=== PATIENT | male | born 1965 | race Caucasian/White ===

== ENCOUNTER 2018-07-04 15:37 | Inpatient (IN) ==
[2018-07-04] MEDS ORDERED: Acetaminophen 325 MG Tablet PO PRN (19:55)
[2018-07-04] MEDS ORDERED: Bisacodyl 10 MG Supp RECTAL PRN (19:55)
[2018-07-04] MEDS ORDERED: Vancomycin Consult Pharmacy OTHER PRN (20:01)
--- NOTE | 2018-07-04 22:13 | P.HPIM ---
History of Present Illness Service: [facility] Hospitalist Primary Care Physician: No Primary Care Physician Chief Complaint: left knee pain/swelling History of Present Illness: Mr. Adorno is a 53-year-old male with no significant medical history who presented to the [place] emergency room on 07/04/2018 complaining of left knee pain and swelling. His findings were consistent with cellulitis and he was transferred to [facility] for admission by the hospitalist team. The patient is seen in his hospital room upon transfer from [place]. He reports severe throbbing, pressure-like left knee pain that has reduced to moderate left knee pain following administration of [place] at [place] [facility]. He reports symptoms increase with weightbearing. He states his symptoms began on Wednesday night and have progressively worsened. He has a small papular area on the left knee that he states he was squeezing and trying to pop and he thinks this was the beginning of the infection. He works in construction and has been on his knees over the past couple of days with worsening of symptoms. An attempt was made to remove fluid from the prepatellar fluid collection noted on the CT in the [facility] ER, but this was unsuccessful. Patient notes low grade temp of 100 at home yesterday. There are no family members with similar lesions or symptoms. - Diagnosis (1) Cellulitis of left knee Review of Systems All other systems reviewed negative except as stated in HPI PMFSH - History History Provided By: Patient - Medical / Surgical Hx Neg / Unobtainable Medical Problems Denied: Yes - Medical History Medical History: Medical History (Last Reviewed 07/04/18 @ 22:21 by DIZA Jiménez) Patient denies medical problems - Surgical History Surgical History: Surgical History (Last Updated 07/04/18 @ 15:40 by Donna Wilder RN) H/O knee surgery - Family History Family History: Family History (Last Updated 07/04/18 @ 22:22 by DIAZ Jiménez) Other No family history of diabetes mellitus - Tobacco History Second Hand Smoke Exposure: No Smoking Status: Never smoker - Alcohol History How Often Do You Have a Drink Containing Alcohol: 2 to 4 times a month Medications and Allergies Active Medications: Active Medications Acetaminophen (Tylenol) 650 mg PO Q4H PRN PRN Reason: Temp > 100.4 Al Hydroxide/Mg Hydroxide (Milk Of Magnesia Liq) 30 ml PO Q12H PRN PRN Reason: Mild Constipation Bisacodyl (Dulcolax Supp) 10 mg RECTAL DAILY PRN PRN Reason: SEVERE CONSITIPATION Sodium Chloride (Ns Inj) 1,000 mls @ 100 mls/hr IV.CONT .Q10H JOHN Piperacillin/Tazobactam/Dextrose (Zosyn 3.375 Gm Premix) 50 mls @ 100 mls/hr IV.SIG Q6H JOHN Lactulose (Lactulose Liq) 30 ml PO DAILY PRN PRN Reason: SEVERE CONSITIPATION Miscellaneous Information ([facility] Nursing Information) 1 each OTHER Q15M JOHN Stop: 07/04/18 23:30 Ondansetron HCl (Zofran Inj) 4 mg IV.PUSH Q6H PRN PRN Reason: NAUSEA OR VOMITING Pharmacy Profile Note (Vancomycin Consult Pharmacy) 1 each OTHER UNSCH PRN PRN Reason: Pharmacy to dose Sennosides (Senokot) 17.2 mg PO Q12H PRN PRN Reason: Moderate Constipation Zolpidem Tartrate (Ambien) 5 mg PO HS PRN PRN Reason: INSOMNIA Allergies Allergy/AdvReac Type Severity Reaction Status Date / Time No Known Allergies Allergy Unverified 07/04/18 15:41 Home Medications Medication Instructions Recorded Confirmed Type No Known Home Medications 07/04/18 07/04/18 History Exam Vital signs: Vital Signs 07/04/18 21:00 Temperature 98.6 F Pulse Rate 80 Respiratory Rate 17 Blood Pressure 134/84 Pulse Oximetry 96 - Constitutional no acute distress, average body habitus - Routine Respiratory Exam Present: CTA bilaterally. Absent: rhonchi, wheezes - Routine Cardiovascular Exam Present: RRR, S1, S2. Absent: murmur, gallop, rubs - Routine Abdominal Exam Present: soft, normoactive bowel sounds. Absent: tenderness, distended - Routine Extremities Exam Present: edema (left knee with surrounding area of erythema circled in black marker), pulses intact, tenderness. Absent: calf tenderness - Routine Skin Exam Present: erythema (as stated above - left knee), warm - Routine Neurological Exam Present: alert, oriented X3 Results - Imaging Left knee CT with IV contrast shows anterior knee with soft tissue swelling and subcutaneous edema with prepatellar fluid collection measuring approximately 5.1 x 0.9 x 4.8 cm. No fracture or joint space abnormality identified. Caprini VTE Risk Assessment Caprini VTE Risk Assessment: No/Low Risk (score <= 1) Caprini Risk Assessment Model: Point Value = 1 Point Value = 2 Point Value = 3 Point Value = 5 Age 41-60 Minor surgery BMI > 25 kg/m2 Swollen legs Varicose veins or History of unexplained or recurrent spontaneous Oral contraceptives or hormone replacement Sepsis (< 1 month) Serious lung disease, including pneumonia (< 1 month) Abnormal pulmonary function Acute myocardial infarction Congestive heart failure (< 1 month) History of inflammatory bowel disease Medical patient at bed rest Age 61-74 Arthroscopic surgery Major open surgery (> 45 min) Laparoscopic surgery (> 45 min) Malignancy Confined to bed (> 72 hours) Immobilizing plaster cast Central venous access Age >= 75 History of VTE Family history of VTE Factor V Leiden Prothrombin [id number] Lupus anticoagulant Anticardiolipin antibodies Elevated serum homocysteine Heparin-induced thrombocytopenia Other congenital or acquired thrombophilia Stroke (< 1 month) Elective arthroplasty Hip, pelvis, or leg fracture Acute spinal cord injury (< 1 month) Prophylaxis Regimen: Total Risk Factor Score Risk Level Prophylaxis Regimen 0-1 Low Early ambulation 2 Moderate Order ONE of the following: *Sequential Compression Device (SCD) *Heparin 5000 units SQ BID 3-4 Higher Order ONE of the following medications: *Heparin 5000 units SQ TID *Enoxaparin/Lovenox 40 mg SQ daily (WT < 150 kg, CrCl > 30 mL/min) *Enoxaparin/Lovenox 30 mg SQ daily (WT < 150 kg, CrCl > 10-29 mL/min) *Enoxaparin/Lovenox 30 mg SQ BID (WT < 150 kg, CrCl > 30 mL/min) AND/OR *Sequential Compression Device (SCD) 5 or more Highest Order ONE of the following medications: *Heparin 5000 units SQ TID (Preferred with Epidurals) *Enoxaparin/Lovenox 40 mg SQ daily (WT < 150 kg, CrCl > 30 mL/min) *Enoxaparin/Lovenox 30 mg SQ daily (WT < 150 kg, CrCl > 10-29 mL/min) *Enoxaparin/Lovenox 30 mg SQ BID (WT < 150 kg, CrCl > 30 mL/min) AND *Sequential Compression Device (SCD) Assessment and Plan - Assessment (1) Cellulitis of left knee Code(s): L03.116 - Cellulitis of left lower limb Status: Acute - Plan Mr. Adorno is a 53-year-old male with no significant medical history who presented to the [place] emergency room on 07/04/2018 complaining of left knee pain and swelling. His findings were consistent with cellulitis and he was transferred to [facility] for admission by the hospitalist team. Cellulitis left knee -IV antibiotics: Vancomycin and Zosyn -Analgesia: IV Toradol -As needed acetaminophen for fever -Monitor erythematosus area traced in black marker for improvement versus worsening DVT prophylaxis - Early ambulation Discussed Condition With: Dr. Palmer, patient, and RN
[2018-07-04] MEDS: Sod Chloride 0.9% Inj 1,000 ML IV.CONT SCH (23:25)
[2018-07-04] MEDS: Zolpidem Tartrate 5 MG Tablet PO PRN (23:25)
[2018-07-04] MEDS: Piperacil/Tazo 3.375 GM Premix 50 ML IV.SIG SCH (23:25)
[2018-07-04] MEDS: Ketorolac Inj 30 MG/ML (IVP) Vial IV.PUSH PRN (23:26)
[2018-07-05] MEDS ORDERED: Vancomycin Inj 1,000 MG in Sodium Chlor 0.9% Inj 250 ML IV.SIG ONE (04:00)
[2018-07-05] MEDS: Piperacil/Tazo 3.375 GM Premix 50 ML IV.SIG SCH ×3 (05:05→15:57)
[2018-07-05 05:06] LABS: Baso # (Auto) 0.1 th/mm3 (0.0-0.2); Baso % (Auto) 0.7 % (0.0-2.0); Eos # (Auto) 0.2 th/mm3 (0.0-0.4); Eos % (Auto) 2.3 % (0.0-4.0); Hemoglobin 14.1 gm/dL (13.0-17.0); Lymph # (Auto) 2.3 th/mm3 (1.0-4.8); Lymph % (Auto) 21.8 % (9.0-44.0); Mean Corpuscular HGB Conc 35.2 % (32.0-36.0); Mean Corpuscular Hemoglobin 30.7 pg (27.0-34.0); Mean Corpuscular Volume 87.2 fL (80.0-100.0); Mean Platelet Volume 7.3 fL (7.0-11.0); Mono # (Auto) 1.1 th/mm3 (0.0-0.9); Mono % (Auto) 10.3 % (0.0-8.0); Neut # (Auto) 6.9 th/mm3 (1.8-7.7); Neut % (Auto) 64.9 % (16.0-70.0); Platelet Count 360 th/mm3 (150-450); Red Blood Count 4.59 mil/mm3 (4.50-5.90); Red Cell Distribution Width 13.7 % (11.6-17.2); White Blood Count 10.6 th/mm3 (4.0-11.0)
[2018-07-05] MEDS: Sod Chloride 0.9% Inj 1,000 ML IV.CONT SCH ×3 (05:06→20:56)
[2018-07-05 05:31] LABS: Calcium 8.1 mg/dL (8.5-10.1); Carbon Dioxide 26.3 meq/L (21.0-32.0); Potassium 3.7 meq/L (3.5-5.1)
--- NOTE | 2018-07-05 10:37 | P.PNIM ---
Subjective Interval history: He reports that left knee pain continues. Denies any chest pain or shortness of breath. Physical Exam Vital signs: Vital Signs 07/04/18 21:00 07/05/18 00:00 07/05/18 08:00 Temperature 98.6 F 97.3 F L 98.2 F Pulse Rate 80 92 H 80 Respiratory Rate 17 17 16 Blood Pressure 134/84 151/81 H 139/94 H Pulse Oximetry 96 96 96 Intake & Output 07/04/18 07/05/18 07/05/18 18:59 06:59 18:59 Intake Total 1050 / 1050 250 / 250 Output Total 300 / 300 Balance 750 / 750 250 / 250 Weight 83.5 kg Intake: IV 1050 / 1050 250 / 250 NS Inj 1,000 ML @ 100 mls/hr IV 1000 / 1000 .CONT .Q10H JOHN Rx#:[id number] Zosyn 3.375 GM Premix 50 ML @ 50 / 50 0 / 0 100 mls/hr IV.SIG Q6H JOHN Rx#: [id number] Vancomycin Inj 1,000 MG In NS 250 / 250 Inj 250 ML @ 250 mls/hr IV.SIG ONCE ONE Rx#:[id number] Oral 0 / 0 Output: Urine 300 / 300 Other: Weight On Admission 83.5 kg Narrative: GENERAL: Patient sitting up in bed. Appears comfortable. SKIN: Warm and dry. HEAD: Normocephalic. EYES: No scleral icterus. No injection or drainage. NECK: Supple, trachea midline. No JVD. CARDIOVASCULAR: Regular rate and rhythm without murmurs, gallops, or rubs. RESPIRATORY: Breath sounds equal bilaterally. No accessory muscle use. GASTROINTESTINAL: Abdomen soft, non-tender, nondistended. MUSCULOSKELETAL: No cyanosis, or edema. Left knee with induration and swelling , erythema surrounding the knee, prepatellar inflammation with puncture wound. BACK: Nontender without obvious deformity. No CVA tenderness. Results - Labs CBC & Chem 7: 07/05/18 04:09 07/05/18 04:09 Laboratory Results - last 24 hr 07/05/18 07/05/18 04:09 04:09 WBC 10.6 RBC 4.59 Hgb 14.1 Hct 40.0 MCV 87.2 MCH 30.7 MCHC 35.2 RDW 13.7 Plt Count 360 MPV 7.3 Neut % (Auto) 64.9 Lymph % (Auto) 21.8 Sargent % (Auto) 10.3 H Eos % (Auto) 2.3 Baso % (Auto) 0.7 Neut # (Auto) 6.9 Lymph # (Auto) 2.3 Sargent # (Auto) 1.1 H Eos # (Auto) 0.2 Baso # (Auto) 0.1 WBC Differential . Differential Comment Auto diff final Sodium 142 Potassium 3.7 Chloride 108 H Carbon Dioxide 26.3 Anion Gap 8 BUN 16 Creatinine 0.90 Estimated GFR 88 L Random Glucose 88 Calcium 8.1 L Assessment and Plan - Assessment (1) Cellulitis of left knee Code(s): L03.116 - Cellulitis of left lower limb Status: Acute - Plan Mr. Adorno is a 53-year-old male with no significant medical history who presented to the [place] emergency room on 07/04/2018 complaining of left knee pain and swelling. His findings were consistent with cellulitis and he was transferred to [facility] for admission by the hospitalist team. //Cellulitis left knee -IV antibiotics: Vancomycin and Zosyn -Analgesia: IV Toradol -As needed acetaminophen for fever -Monitor erythematosus area traced in black marker for improvement versus worsening = 07/05. There is improvement with her changing of cellulitis from marked area, however still inflammation of the tissue surrounding the knee, including what appears to be prepatellar bursitis. Will consult orthopedics for assessment. Continue antibiotics. DVT prophylaxis - Early ambulation Discharge Planning: When cleared by Ortho
[2018-07-05] MEDS: Vancomycin Inj 1,000 MG in Sodium Chlor 0.9% Inj 250 ML IV.SIG SCH (17:06)
[2018-07-05] MEDS: Clindamycin 900 mg/NS Premix 900 MG/50 ML PIGGYBACK IV.SIG SCH ×2 (17:50→18:27)
--- NOTE | 2018-07-05 19:37 | MB ---
cc: AnelPedro smalls Kiah [facility] DATE: 07/05/2018 CHIEF COMPLAINT: Left knee pain. HISTORY OF PRESENT ILLNESS: This is a 53-year-old male who presented to [place] on 07/04/2018 with complaints of left knee pain and swelling. The patient was diagnosed with cellulitis and possible bursitis of the prepatellar region. The patient was transferred to [facility]. The patient states he was placed on IV antibiotics and that over the course of today, the severe left knee pain has improved. The patient describes his pain currently as being mild to moderate. Pain is worse with movement and weightbearing. The patient denies any prior history of knee pain or knee infections. The patient states his symptoms began on Wednesday night and became worse from this time. The patient reports gradually having increased redness that began traveling both above and below the knee. The patient reports running a low-grade temperature at home prior to his arrival at the emergency department. REVIEW OF SYSTEMS: Negative x 12 except for what is stated in the HPI. PAST MEDICAL HISTORY: Unremarkable. PAST SURGICAL HISTORY: Right ACL reconstruction. PAST FAMILY HISTORY: Unremarkable. SOCIAL HISTORY: The patient denies any use of tobacco and states he does drink occasionally. MEDICINES: The patient has no use of medications. ALLERGIES: THE PATIENT HAS NO KNOWN DRUG ALLERGIES. PHYSICAL EXAMINATION: VITAL SIGNS: Temperature 98.8, pulse 77, respirations 18, blood pressure 151/88, oxygen saturation 98% on room air. GENERAL: The patient is well nourished and well developed. The patient is lying in bed in no acute distress. HEAD: Atraumatic and normocephalic. EYES: PERRLA. EARS, NOSE AND THROAT: The patient has moist mucous membranes with no drainage from the ears or nose. NECK: Supple and trachea is midline. CARDIOVASCULAR: The patient has 2+ radial and pedal pulses bilaterally. RESPIRATORY: The patient has symmetric chest wall rise and nonlabored breathing. ABDOMEN: Soft, nondistended and nontender. MUSCULOSKELETAL: The patient moves the right ankle, knee and hip within normal range of motion and has no tenderness. The patient has good range of motion and no tenderness about the left ankle and hip. The patient does have limited active and passive range of motion of the left knee. There is moderate swelling to the left knee. There is no joint effusion. The patient does have erythema surrounding the left knee with margins that end around the mid tibia and mid thigh. The patient is tender to palpation about the knee. There is warmth to the knee. The patient has full range of motion with no limitations and no tenderness about the bilateral upper extremities. NEUROVASCULAR: The patient is alert and oriented x3. There are no obvious cranial nerve deficits. PSYCHOSOCIAL: The patient has a normal mood and affect. LABORATORY DATA: Labs taken on 07/05/2018 show white blood cells are 10.6, hemoglobin 14.1, hematocrit 40, platelets 360. Creatinine 0.9, glucose 88. IMAGING DATA: CT of the left knee with IV contrast on 07/04/2018 reads as anterior knee soft tissue swelling and subcutaneous edema with prepatellar fluid collection measuring 5.1 x 0.9 x 4.8 cm. There is no fracture or joint space abnormality identified. I have reviewed the above images and the radiologist's interpretation. I do agree with the documentation. Ultrasound venous Doppler of the left lower extremity on 07/04/2018 reads as no venous thrombosis identified in the left lower extremity. There is a subcutaneous fluid collection in the prepatellar space. IMPRESSION: 1. Left knee prepatellar bursitis. 2. Left knee cellulitis. MEDICAL DECISION MAKING: After examining the patient today, I do feel the patient has both prepatellar bursitis and cellulitis of the left lower extremity. There does appear to be a fluid collection at the left knee prepatellar bursa. There is tenderness to palpation. The patient had also been running low-grade fevers prior to his antibiotics. I had a lengthy discussion today with the patient and his family regarding his options. The patient was offered conservative management, which would include continued IV antibiotics, which may or may not resolve his current symptoms totally. We also discussed the option of surgery for the left knee, which would include incision and drainage of the infected left knee prepatellar bursitis. The patient was made aware of the risks and benefits of surgery as well as what to expect with postoperative rehabilitation. The patient understands that he would likely have a drain postoperatively for several days. The patient would also likely be placed on further IV antibiotics to address his infection. Antibiotics would need to be arranged and the patient may require a PICC line for long-term IV antibiotics. After discussing his options, the patient has decided to proceed with surgery. Surgery would be a left knee incision and drainage of prepatellar bursitis. The patient will be n.p.o. after midnight tonight and surgery will be scheduled for tomorrow. The patient's left knee was marked for surgery. I have reviewed the above impression and plan of care with Dr. Mares and he agrees with this documentation. Pedro Graham [facility] MD CHERYL Larose/rod , 06:49 PM , 07:08 PM MTDD
[2018-07-05] MEDS: Zolpidem Tartrate 5 MG Tablet PO PRN (20:56)
[2018-07-06] MEDS: Clindamycin 900 mg/NS Premix 900 MG/50 ML PIGGYBACK IV.SIG SCH ×3 (02:56→17:13)
[2018-07-06] MEDS: Sod Chloride 0.9% Inj 1,000 ML IV.CONT SCH ×4 (03:16→23:24)
[2018-07-06] MEDS ORDERED: Pharmacy Ordered Lab Info OTHER ONE (04:45)
[2018-07-06] MEDS: Vancomycin Inj 1,000 MG in Sodium Chlor 0.9% Inj 250 ML IV.SIG SCH (05:27)
[2018-07-06] MEDS: Ketorolac Inj 30 MG/ML (IVP) Vial IV.PUSH PRN (09:13)
--- NOTE | 2018-07-06 10:10 | P.PNIM ---
Subjective Interval history: Patient reports pain in left knee slightly worse than yesterday. Says that otherwise he is feeling all right. Denies any chest pain, shortness of breath, nausea, vomiting. Physical Exam Vital signs: Vital Signs 07/05/18 12:00 07/05/18 16:00 07/05/18 20:00 Temperature 98.8 F 97.9 F 98.7 F Pulse Rate 77 83 81 Respiratory Rate 18 18 17 Blood Pressure 151/88 H 139/81 143/87 H Pulse Oximetry 98 97 96 07/06/18 00:00 07/06/18 08:00 Temperature 98.3 F 98.2 F Pulse Rate 84 76 Respiratory Rate 19 14 Blood Pressure 128/79 132/91 H Pulse Oximetry 98 96 Intake & Output 07/05/18 07/06/18 07/06/18 18:59 06:59 18:59 Intake Total 3850 / 3850 2750 / 2750 Output Total 800 / 800 900 / 900 Balance 3050 / 3050 1850 / 1850 Weight 83.5 kg Intake: IV 1450 / 1450 2050 / 2050 NS Inj 1,000 ML @ 100 mls/hr IV 1000 / 1000 2000 / 2000 .CONT .Q10H JOHN Rx#:[id number] Cleocin 900 mg/NS Premix 900 mg 50 / 50 50 / 50 In 50 ml @ 100 mls/hr IV.SIG Q8H JOHN Rx#:[id number] Zosyn 3.375 GM Premix 50 ML @ 150 / 150 100 mls/hr IV.SIG Q6H JOHN Rx#: [id number] Vancomycin Inj 1,000 MG In NS 250 / 250 Inj 250 ML @ 250 mls/hr IV.SIG ONCE ONE Rx#:[id number] Oral 1200 / 1200 700 / 700 Other 1200 / 1200 Output: Urine 800 / 800 900 / 900 Other: Date of Last Bowel Movement 07/05/18 Narrative: GENERAL: Patient sitting up in bed. Appears comfortable. SKIN: Warm and dry. HEAD: Normocephalic. EYES: No scleral icterus. No injection or drainage. NECK: Supple, trachea midline. No JVD. CARDIOVASCULAR: Regular rate and rhythm without murmurs, gallops, or rubs. RESPIRATORY: Breath sounds equal bilaterally. No accessory muscle use. GASTROINTESTINAL: Abdomen soft, non-tender, nondistended. MUSCULOSKELETAL: No cyanosis, or edema. Left knee with induration and swelling , erythema surrounding the knee, prepatellar inflammation with puncture wound. No improvement from yesterday. BACK: Nontender without obvious deformity. No CVA tenderness. Results - Labs CBC & Chem 7: 07/05/18 04:09 07/05/18 04:09 Assessment and Plan - Assessment (1) Cellulitis of left knee Code(s): L03.116 - Cellulitis of left lower limb Status: Acute - Plan Mr. Adorno is a 53-year-old male with no significant medical history who presented to the [place] emergency room on 07/04/2018 complaining of left knee pain and swelling. His findings were consistent with cellulitis and he was transferred to [facility] for admission by the hospitalist team. //Cellulitis left knee //Prepatellar bursitis -IV antibiotics: Vancomycin and Zosyn -Analgesia: IV Toradol -As needed acetaminophen for fever -Monitor erythematosus area traced in black marker for improvement versus worsening = 07/05. There is improvement with her changing of cellulitis from marked area, however still inflammation of the tissue surrounding the knee, including what appears to be prepatellar bursitis. Will consult orthopedics for assessment. Continue antibiotics. = 07/06. For surgery today. Appreciate surgical assistance. Follow-up cultures , negative at this time. DVT prophylaxis - Early ambulation Discharge Planning: When cleared by Ortho
--- NOTE | 2018-07-06 10:34 | P.PNOP ---
Physical Exam Vital signs: Vital Signs 07/05/18 12:00 07/05/18 16:00 07/05/18 20:00 Temperature 98.8 F 97.9 F 98.7 F Pulse Rate 77 83 81 Respiratory Rate 18 18 17 Blood Pressure 151/88 H 139/81 143/87 H Pulse Oximetry 98 97 96 07/06/18 00:00 07/06/18 08:00 Temperature 98.3 F 98.2 F Pulse Rate 84 76 Respiratory Rate 19 14 Blood Pressure 128/79 132/91 H Pulse Oximetry 98 96 Intake & Output 07/05/18 07/06/18 07/06/18 18:59 06:59 18:59 Intake Total 3850 / 3850 2750 / 2750 50 / 50 Output Total 800 / 800 900 / 900 Balance 3050 / 3050 1850 / 1850 50 / 50 Weight 83.5 kg Intake: IV 1450 / 1450 2050 / 2050 50 / 50 NS Inj 1,000 ML @ 100 mls/hr IV 1000 / 1000 2000 / 1999 .CONT .Q10H JOHN Rx#:[id number] Cleocin 900 mg/NS Premix 900 mg 50 / 50 50 / 50 50 / 50 In 50 ml @ 100 mls/hr IV.SIG Q8H JOHN Rx#:[id number] Zosyn 3.375 GM Premix 50 ML @ 150 / 150 100 mls/hr IV.SIG Q6H JOHN Rx#: [id number] Vancomycin Inj 1,000 MG In NS 250 / 250 Inj 250 ML @ 250 mls/hr IV.SIG ONCE ONE Rx#:[id number] Oral 1200 / 1200 700 / 700 Other 1200 / 1200 Output: Urine 800 / 800 900 / 900 Other: Date of Last Bowel Movement 07/05/18 Narrative: Moderate prepatellar bursal fluid collection is noted. Moderate cellulitis surrounding is noted. Previous aspiration site is noted. No active drainage. Results - Labs CBC & Chem 7: 07/05/18 04:09 07/05/18 04:09 Assessment and Plan - Assessment and Plan Left knee prepatellar septic bursitis with surrounding cellulitis I reviewed the consultation done by the nurse practitioner. I discussed the case with the patient and multiple family members were at the bedside. I do recommend surgical management today. We discussed the risks and benefits of surgery along with the postoperative rehabilitation in detail. We discussed that this is a serious condition effecting this patient's extremity. Nonoperative and operative options were discussed and reviewed. Potential consequences of both of these options were reviewed. He understands that even with successful surgery it is possible the patient could continue to have ongoing infection which would require further surgery. We discussed the option of closure with a drain versus leaving the wound open with a VAC device. He understands this decision will be determined intraoperatively. The patient would like to move forward with urgent surgical management for this condition. This is surgery should be considered non-elective, given that this patient presented emergently to the hospital, and the decision to proceed with surgery was derived from this presentation. Significantly delaying surgery ( other than for medical clearance) has the potential to adversly effect the outcome for this patient's extermity. Management of pain associated with surgery will likely require the use of parental controlled substances. The risks and benefits of surgical management have been discussed in detail. The risks of surgery include, but are not limited to, injury to nerves, blood vessels, bleeding, infection, non-healing; loss of range on motion, dysfunction or weakness of the associated joints; blood clots, pneumonia, stroke, heart attack, and . - Attending Attestation Attending Attestation: A mid level provider in my office, nurse practitioner or PA, may see this patient on a follow up basis and continue to implement the plan including: starting or adjusting medications, injections of muscle, tendons, bursa or joints, cast application, orthotic or brace application, physical therapy, further radiographic studies including X-ray, MRI, CT, ultrasound or bone scan , vascular studies, neurological studies, or other specialist consultations, and proceeding with surgical management as appropriate.
--- NOTE | 2018-07-06 12:02 | P.PNID ---
Infectious Disease Brief Note ID Came by to see patient and he is not in his room He went to surgery I will see patient tomorrow and do full consultation Liza Vaughan
[2018-07-06] MEDS ORDERED: Post-op Orders (for Pharmacy) OTHER STA (12:50)
[2018-07-06] MEDS ORDERED: Bisacodyl 10 MG Supp RECTAL PRN (12:50)
[2018-07-06] MEDS ORDERED: Aluminum/Magnesium/Simethacone Susp 30 ML UDC PO PRN (12:50)
[2018-07-06] MEDS ORDERED: Morphine Inj 4 MG/ML Vial IV.PUSH PRN (12:50)
--- NOTE | 2018-07-06 13:42 | P.OP ---
- Preoperative Diagnosis (1) Septic prepatellar bursitis of left knee - Postoperative Diagnosis (1) Septic prepatellar bursitis of left knee Date of procedure: 07/06/18 Procedure: Left knee prepatellar bursectomy with irrigation and debridement Surgeon: Cristino Mares MD Hand Cigar Maker: DIAZ Das The surgical procedure was assisted by my Advanced Registered Nurse Practitioner. My FULL STACK PYTHON DEVELOPER presence was necessary throughout this case for the manipulation and positioning of the surgical extremity. My FULL STACK PYTHON DEVELOPER was assisting me throughout the duration of this procedure. The skill set of an Advance Registered Nurse Practitioner was medically necessary to complete this procedure. During the surgical case, the surgical nurse was working at the back table and the Advance Registered Nurse Practitioner was directly assisting me. Operation and Findings: Estimated blood loss: 20 cc The patient has been on standing antibiotics, clindamycin. After the appropriate anesthesia was administered, the patient's leg was prepped and draped in the usual sterile fashion. We made a standard incision on the anterior aspect of the knee, dissecting down to the prepatellar bursa. The findings included multiple septations with approximately 20 cc of cloudy brownish fluid with significantly thickened prepatellar bursal tissue and thickened subcutaneous tissue. We resected the prepatellar bursa including adhesions and septations, with sharp dissection including a scalpel, Barry, and abrasion with laparotomy pad. We then followed this with thorough irrigation with antibiotic solution. We felt that the skin was in adequate condition to allow us to perform closure. Therefore, we placed a deep flat drain percutaneously, and then proceeded with skin closure using 2-0 Monocryl and 3-0 nylon. The postoperative plan is for full weightbearing to the extremity. Additionally we will recommend to have an infectious disease physician help to manage antibiotic administration postoperatively.
[2018-07-06] MEDS ORDERED: *Meperidine Inj 25 MG/ML Vial PERIprocedural Use ONLY ONE (14:26)
[2018-07-06] MEDS ORDERED: fentaNYL Citrate Inj 100 MCG/2 ML Ampul ONE ×2 (14:32)
--- NOTE | 2018-07-06 15:08 | P.CONID ---
History of Present Illness Service: Infectious disease Consult date: 07/06/18 Requesting Physician: Cristino Mares Reason for Consult: Evaluate patient with left knee cellulitis, prepatellar bursitis Primary Care Provider: No Primary Care Physician Chief Complaint: left knee pain/swelling History of Present Illness: Patient seen and examined. Records reviewed. Patient is a 53-year-old male, presented to the hospital complaining of pain and swelling on his left knee over the last 4 days. This is a 53-year-old male who presented to [place]. He had noted that he had something on his left knee that looked like a bump. 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 The pain gets worse with any kind of movement and with weightbearing. He had some low-grade fevers. He denies any respiratory complaint, GI or any urinary complaints. He does not remember having any trauma , and he has not had any prior problem with his knee. He first presented in the ED at [place] and from there he was transferred to [facility] for further management. Aspiration of the left knee was tried but no fluid was obtained. Orthopedic evaluation was done, and the patient was taken to surgery today and had I&D of his left knee and was diagnosed to have prepatellar bursitis. His WBC is normal. He is afebrile. Yesterday he was noted to have hives in his arms and back. Patient has been getting Zosyn, and has received 4 doses, and he has received 1 dose of IV vancomycin Infectious disease consultation has been requested to evaluate the patient. Review of Systems Constitutional: Reports fever(s), Denies chills Eyes: Denies discharge, Denies dry eyes Ears, Nose, Mouth, and Throat: Denies difficulty swallowing, Denies ear pain, Denies headache(s), Denies mouth pain, Denies nasal discharge, Denies pain with swallowing, Denies sore throat Cardiovascular: Denies chest pain, Denies shortness of breath Respiratory: Denies chest congestion, Denies cough, Denies shortness of breath Gastrointestinal: Denies abdominal pain, Denies loose stools, Denies nausea, Denies vomiting Genitourinary: Denies painful urination Musculoskeletal: Reports joint pain, Reports joint swelling Skin/Breast: Denies sores PMFSH - History History Provided By: Patient - Medical / Surgical Hx Neg / Unobtainable Medical Problems Denied: Yes - Medical History Medical History: Medical History (Last Reviewed 07/06/18 @ 15:03 by Liza Vaughan MD) Patient denies medical problems - Surgical History Surgical History: Surgical History (Last Reviewed 07/06/18 @ 15:03 by Liza Vaughan MD) H/O knee surgery - Family History Family History: Family History (Last Updated 07/04/18 @ 22:22 by DIAZ Jiménez) Other No family history of diabetes mellitus - Tobacco History Second Hand Smoke Exposure: No Smoking Status: Never smoker - Alcohol History How Often Do You Have a Drink Containing Alcohol: 2 to 4 times a month - Substance Use History Substance History: No History of Abuse Medications and Allergies Active Medications: Active Medications Acetaminophen (Tylenol) 650 mg PO Q4H PRN PRN Reason: Temp > 100.4 Hydrocodone Bitart/Acetaminophen (Meridian 5/325) 1 tab PO Q4H PRN PRN Reason: PAIN LESS THAN 5 ON SCALE Hydrocodone Bitart/Acetaminophen (Meridian 5/325) 2 tab PO Q6H PRN PRN Reason: PAIN SCALE 5 TO 10 Al Hydrox/Mg Hydrox/Simethicone (Mag-Al Plus Susp Liq) 30 ml PO Q6H PRN PRN Reason: INDIGESTION Al Hydroxide/Mg Hydroxide (Milk Of Magnesia Liq) 30 ml PO Q12H PRN PRN Reason: Mild Constipation Al Hydroxide/Mg Hydroxide (Milk Of Magnesia Liq) 30 ml PO BID PRN PRN Reason: Mild Constipation Bisacodyl (Dulcolax Supp) 10 mg RECTAL DAILY PRN PRN Reason: SEVERE CONSITIPATION Diphenhydramine HCl (Benadryl) 25 mg PO Q6H PRN PRN Reason: ITCHING Sodium Chloride (Ns Inj) 1,000 mls @ 100 mls/hr IV.CONT .Q10H [facility] Last Admin: 07/06/18 11:57 Dose: Not Given Vancomycin HCl 1,000 mg/ (Sodium Chloride) 250 mls @ 250 mls/hr IV.SIG Q12H JOHN Last Admin: 07/06/18 05:27 Dose: Not Given Clindamycin/Sodium Chloride (Cleocin 900 Mg/Ns Premix) 900 mg in 50 mls @ 100 mls/hr IV.SIG Q8H [facility] Last Infusion: 07/06/18 10:27 Dose: Infused Lactated Ringer's (Lr 1000 Ml Inj) 1,000 mls @ 30 mls/hr IV.SIG .Q24H [facility] Stop: 07/09/18 01:36 Last Admin: 07/06/18 12:20 Dose: 30 mls/hr Lactated Ringer's (Lr 1000 Ml Inj) 1,000 mls @ 80 mls/hr IV.CONT .[id number] [facility] Ketorolac Tromethamine (Toradol Inj) 15 mg IV.PUSH Q6H PRN PRN Reason: pain > 3 Stop: 07/09/18 22:13 Last Admin: 07/06/18 09:13 Dose: 15 mg Lactulose (Lactulose Liq) 30 ml PO DAILY PRN PRN Reason: SEVERE CONSITIPATION Morphine Sulfate (Morphine Inj) 2 mg IV.PUSH Q3H PRN PRN Reason: BREAKTHROUGH PAIN Multivitamins/Minerals (Theragran-M) 1 tab PO BID [facility] Stop: 09/04/18 20:59 Ondansetron HCl (Zofran Inj) 4 mg IV.PUSH Q6H PRN PRN Reason: NAUSEA OR VOMITING Senna/Docusate Sodium (Kori-Colace) 1 tab PO BID [facility] Sennosides (Senokot) 17.2 mg PO BID PRN PRN Reason: Moderate Constipation Sodium Chloride (Ns Flush) 2 ml IV.FLUSH BID JOHN Sodium Chloride (Ns Flush) 2 ml IV.FLUSH PRN PRN PRN Reason: FLUSH AFTER USING IV ACCESS Zolpidem Tartrate (Ambien) 5 mg PO HS PRN PRN Reason: INSOMNIA Allergies Allergy/AdvReac Type Severity Reaction Status Date / Time vancomycin AdvReac Mild Hives Verified 07/06/18 01:25 piperacillin [From Zosyn] AdvReac Hives Verified 07/06/18 01:25 tazobactam [From Zosyn] AdvReac Hives Verified 07/06/18 01:25 Exam Vital signs: Vital Signs 07/05/18 16:00 07/05/18 20:00 07/06/18 00:00 Temperature 97.9 F 98.7 F 98.3 F Pulse Rate 83 81 84 Respiratory Rate 18 17 19 Blood Pressure 139/81 143/87 H 128/79 Pulse Oximetry 97 96 98 07/06/18 08:00 07/06/18 14:18 Temperature 98.2 F 96 F L Pulse Rate 76 97 H Respiratory Rate 14 17 Blood Pressure 132/91 H 120/73 Pulse Oximetry 96 93 L Intake & Output 07/05/18 07/06/18 07/06/18 18:59 06:59 18:59 Intake Total 3850 / 3850 2750 / 2750 2550 / 2550 Output Total 800 / 800 900 / 900 30 / 30 Balance 3050 / 3050 1850 / 1850 2520 / 2520 Weight 83.5 kg Intake: IV 1450 / 1450 2050 / 2050 50 / 50 NS Inj 1,000 ML @ 100 mls/hr IV 1000 / 1000 1999 / 1999 .CONT .Q10H [facility] Rx#:[id number] Cleocin 900 mg/NS Premix 900 mg 50 / 50 50 / 50 50 / 50 In 50 ml @ 100 mls/hr IV.SIG Q8H [facility] Rx#:[id number] Zosyn 3.375 GM Premix 50 ML @ 150 / 150 100 mls/hr IV.SIG Q6H JOHN Rx#: [id number] Vancomycin Inj 1,000 MG In NS 250 / 250 Inj 250 ML @ 250 mls/hr IV.SIG ONCE ONE Rx#:[id number] Oral 1200 / 1200 700 / 700 Anesthesia Amount 2500 / 2500 Other 1200 / 1200 Output: Urine 800 / 800 900 / 900 Estimated Blood Loss 30 / 30 Other: Date of Last Bowel Movement 07/05/18 07/05/18 Narrative: Physical Examination GENERAL: Patient is a well-nourished, well-developed patient, slightly slow to respond, seen in PACU, not in respiratory distress. SKIN: Warm and dry. No generalized rash, no ecchymoses and no evidence of embolic lesions. HEAD: Atraumatic. Normocephalic. No temporal wasting, or tenderness. EYES: [place] conjunctiva. No petechia or hemorrhage. Pupils equal, round and reactive to light. Extraocular movements full and intact. No scleral icterus. No injection or drainage. EARS, NOSE AND THROAT: Nose without bleeding or purulent nasal discharge. No sinus tenderness. Mucous membranes pink and moist. No oral lesions noted. No exudate. No oral thrush. NECK: Trachea midline. Supple and not tender, no meningeal signs CARDIOVASCULAR: Regular rate and rhythm. No murmurs, rubs or gallops heard RESPIRATORY: Clear to auscultation. Breath sounds equal bilaterally. No rales , wheezing or rhonchi ABDOMEN: Soft, non-tender, nondistended. Bowel sounds present and normoactive. No guarding. No rebound. No organomegaly. EXTREMITIES: No clubbing, cyanosis. Has dry dressing on his L knee, has ALYSON drain in place with bloody drainage. Has erythema on his L leg with some edema. No calf tenderness. Well perfused and warm. NEUROLOGICAL: Awake and alert. Cranial nerves grossly intact. Motor grossly within normal limits. PSYCHIATRIC: Normal affect, calm and cooperative. LINE: No evidence of infection Results - Labs CBC & Chem 7: 07/05/18 04:09 07/05/18 04:09 Assessment and Plan - Plan Impression Cellulitis L knee Possible Septic prepatellar bursitis - S/P surgery Hives, ?from Zosyn or Vancomycin Recommendation Continue Clindamycin Add Levaquin Follow C/S Get some baseline labs: LFT, ESR and CRP Monitor progress Will determine course of Rx once workup is completed I will follow along with you Thank you for this consultation
[2018-07-06] MEDS ORDERED: Succinylcholine Inj 100 MG/5 ML Syringe IV.PUSH ONE (17:02)
[2018-07-06] MEDS ORDERED: Phenylephrine/NS 1000 MCG/10ML Syringe IV.PUSH ONE (17:02)
[2018-07-06] MEDS ORDERED: Glycopyrrolate Inj 1 MG/5 ML Syringe IV.PUSH ONE (17:02)
[2018-07-06] MEDS ORDERED: Lidocaine PF 1% Inj 5 ML Syringe INFILTRATN ONE (17:02)
[2018-07-06] MEDS: levoFLOXacin 750 MG Tablet PO SCH (17:14)
[2018-07-06] MEDS: Zolpidem Tartrate 5 MG Tablet PO PRN (21:33)
[2018-07-06] MEDS: Multivitamin/Minerals Therapeutic Tablet PO SCH (21:33)
[2018-07-06] MEDS: Senna/Docusate Sodium 8.6/50 MG Tablet PO SCH (21:34)
--- NOTE | 2018-07-06 21:39 | ECG ---
Date Performed: 07/06/2018 Time Performed: 05:31:10 PTAGE: 53 years EKG: Sinus rhythm Normal ECG Since the PREVIOUS TRACING , no significant change noted DOCTOR: Richardson Ennis Interpretating Date/Time 07/06/2018 21:37:11
[2018-07-07] MEDS: Clindamycin 900 mg/NS Premix 900 MG/50 ML PIGGYBACK IV.SIG SCH ×3 (03:13→17:56)
--- NOTE | 2018-07-07 07:45 | P.PNOP ---
Subjective Interval history: Patient is resting comfortably in bed with complaints of mild discomfort to the left knee. Physical Exam Vital signs: Vital Signs 07/06/18 08:00 07/06/18 14:18 07/06/18 14:30 Temperature 98.2 F 96 F L Pulse Rate 76 97 H 98 H Respiratory Rate 14 17 18 Blood Pressure 132/91 H 120/73 134/79 Pulse Oximetry 96 93 L 94 L 07/06/18 14:45 07/06/18 15:00 07/06/18 15:06 Temperature 97.8 F Pulse Rate 82 83 84 Respiratory Rate 18 17 18 Blood Pressure 133/76 121/78 124/82 Pulse Oximetry 96 96 97 07/06/18 16:00 07/06/18 17:00 07/06/18 20:00 Temperature 97.3 F L 97.4 F L Pulse Rate 81 77 Respiratory Rate 16 19 Blood Pressure 138/94 H 133/77 Pulse Oximetry 97 98 98 07/06/18 20:41 07/07/18 01:36 Temperature 97.2 F L Pulse Rate 75 Respiratory Rate 19 Blood Pressure 133/86 Pulse Oximetry 98 97 Intake & Output 07/06/18 07/07/18 07/07/18 18:59 06:59 18:59 Intake Total 4080 / 4080 1850 / 1850 Output Total 35 / 35 475 / 475 Balance 4045 / 4045 1375 / 1375 Weight 83.7 kg Intake: IV 1100 / 1100 1050 / 1050 LR 1000 mL Inj 1,000 ML @ 80 1000 / 1000 mls/hr IV.CONT .[id number] JOHN Rx# :[id number] NS Inj 1,000 ML @ 100 mls/hr IV 1000 / 1000 .CONT .Q10H JOHN Rx#:[id number] Cleocin 900 mg/NS Premix 900 mg 100 / 100 50 / 50 In 50 ml @ 100 mls/hr IV.SIG Q8H JOHN Rx#:[id number] Oral 480 / 480 800 / 800 Anesthesia Amount 2500 / 2500 Output: Urine 475 / 475 Estimated Blood Loss 30 / 30 Wound Drainage 5 / 5 # 1 Left Knee ALYSON Drain 5 / 5 Other: # Voids 3 Date of Last Bowel Movement 07/05/18 07/05/18 Narrative: The patient's dressing is clean, dry, and intact. Drain is intact with small amount of serosanguineous drainage. EHL/TA/G are intact. 2+ pedal pulse. The patient's calf is soft and nontender. Sensation is intact to light touch distally. Surrounding erythema about the thigh and calf are improving. Intraoperative cultures are negative at this time Results - Labs CBC & Chem 7: 07/05/18 04:09 07/05/18 04:09 - Procedures Left knee prepatellar bursectomy with irrigation and debridement Assessment and Plan - Assessment and Plan Postop day #1: Left knee prepatellar bursectomy with irrigation and debridement 1. Weightbearing as tolerated on the left lower extremity 2. Maintain dressing and drain. We will likely remove the drain and change dressing postop day #2. 3. Infectious disease to manage antibiotics. We will continue to follow intraoperative cultures. 4. The patient will follow up in the office with Dr. Mares and DIAZ Carroll in 1-2 weeks.
--- NOTE | 2018-07-07 08:20 | P.PNIM ---
Subjective Interval history: Patient says he is feeling all right. Reports pain control. Denies any chest pain shortness breath. Drain continues to left knee. Physical Exam Vital signs: Vital Signs 07/06/18 14:18 07/06/18 14:30 07/06/18 14:45 Temperature 96 F L Pulse Rate 97 H 98 H 82 Respiratory Rate 17 18 18 Blood Pressure 120/73 134/79 133/76 Pulse Oximetry 93 L 94 L 96 07/06/18 15:00 07/06/18 15:06 07/06/18 16:00 Temperature 97.8 F 97.3 F L Pulse Rate 83 84 81 Respiratory Rate 17 18 16 Blood Pressure 121/78 124/82 138/94 H Pulse Oximetry 96 97 97 07/06/18 17:00 07/06/18 20:00 07/06/18 20:41 Temperature 97.4 F L Pulse Rate 77 Respiratory Rate 19 Blood Pressure 133/77 Pulse Oximetry 98 98 98 07/07/18 01:36 07/07/18 08:00 Temperature 97.2 F L 97.8 F Pulse Rate 75 72 Respiratory Rate 19 16 Blood Pressure 133/86 147/90 H Pulse Oximetry 97 97 Intake & Output 07/06/18 07/07/18 07/07/18 18:59 06:59 18:59 Intake Total 4080 / 4080 1850 / 1850 Output Total 35 / 35 475 / 475 Balance 4045 / 4045 1375 / 1375 Weight 83.7 kg Intake: IV 1100 / 1100 1050 / 1050 LR 1000 mL Inj 1,000 ML @ 80 1000 / 1000 mls/hr IV.CONT .[id number] [facility] Rx# :[id number] NS Inj 1,000 ML @ 100 mls/hr IV 1000 / 1000 .CONT .Q10H [facility] Rx#:[id number] Cleocin 900 mg/NS Premix 900 mg 100 / 100 50 / 50 In 50 ml @ 100 mls/hr IV.SIG Q8H [facility] Rx#:[id number] Oral 480 / 480 800 / 800 Anesthesia Amount 2500 / 2500 Output: Urine 475 / 475 Estimated Blood Loss 30 / 30 Wound Drainage 5 / 5 # 1 Left Knee ALYSON Drain 5 / 5 Other: # Voids 3 Date of Last Bowel Movement 07/05/18 07/05/18 Narrative: GENERAL: Patient standing in room. Appears comfortable. SKIN: Warm and dry. HEAD: Normocephalic. EYES: No scleral icterus. No injection or drainage. NECK: Supple, trachea midline. No JVD. CARDIOVASCULAR: Regular rate and rhythm without murmurs, gallops, or rubs. RESPIRATORY: Breath sounds equal bilaterally. No accessory muscle use. GASTROINTESTINAL: Abdomen soft, non-tender, nondistended. MUSCULOSKELETAL: No cyanosis, or edema. Left knee dressed with drain in place. Serosanguineous fluid. BACK: Nontender without obvious deformity. No CVA tenderness. Results - Labs CBC & Chem 7: 07/05/18 04:09 07/05/18 04:09 - Procedures Left knee prepatellar bursectomy with irrigation and debridement Assessment and Plan - Assessment (1) Cellulitis of left knee Code(s): L03.116 - Cellulitis of left lower limb Status: Acute - Plan Mr. Adorno is a 53-year-old male with no significant medical history who presented to the [facility] emergency room on 07/04/2018 complaining of left knee pain and swelling. His findings were consistent with cellulitis and he was transferred to [facility] for admission by the hospitalist team. //Cellulitis left knee //Prepatellar bursitis -IV antibiotics: Vancomycin and Zosyn -Analgesia: IV Toradol -As needed acetaminophen for fever -Monitor erythematosus area traced in black marker for improvement versus worsening = 07/05. There is improvement with her changing of cellulitis from marked area, however still inflammation of the tissue surrounding the knee, including what appears to be prepatellar bursitis. Will consult orthopedics for assessment. Continue antibiotics. = 07/06. For surgery today. Appreciate surgical assistance. Follow-up cultures , negative at this time. = 07/07. Continue antibiotics as per infectious disease. Continues with drain in place. Follow-up cultures from [facility] 07/05, as well as from surgery 07/06. Appreciate ID and or so assistance. DVT prophylaxis - Early ambulation Discharge Planning: When cleared by Ortho, ID
[2018-07-07] MEDS: levoFLOXacin 750 MG Tablet PO SCH (09:10)
[2018-07-07] MEDS: Multivitamin/Minerals Therapeutic Tablet PO SCH ×2 (09:10→20:49)
[2018-07-07] MEDS: Sod Chloride 0.9% Inj 1,000 ML IV.CONT SCH ×2 (09:12→17:56)
[2018-07-07] MEDS: Senna/Docusate Sodium 8.6/50 MG Tablet PO SCH ×2 (09:13→20:49)
[2018-07-07 10:46] LABS: Alanine Aminotransferase 23 U/L (12-78); Albumin 2.6 g/dL (3.4-5.0); Aspartate Aminotransferase 10 U/L (15-37); Glomerular Filtration Rate Greater Than 89 mL/min (>89)
[2018-07-07 10:48] LABS: Alkaline Phosphatase 63 U/L (45-117); Total Protein 6.3 g/dL (6.4-8.2)
--- NOTE | 2018-07-07 12:57 | P.PNID ---
Subjective Remarks: Patient is a 53-year-old male, presented to the hospital complaining of pain and swelling on his left knee over the last 4 days. This is a 53-year-old male who presented to [place]. He had noted that he had something on his left knee that looked like a bump. 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 The pain gets worse with any kind of movement and with weightbearing. He had some low-grade fevers. He denies any respiratory complaint, GI or any urinary complaints. He does not remember having any trauma , and he has not had any prior problem with his knee. He first presented in the ED at [place] and from there he was transferred to [facility] for further management. Aspiration of the left knee was tried but no fluid was obtained. Orthopedic evaluation was done, and the patient was taken to surgery today and had I&D of his left knee and was diagnosed to have prepatellar bursitis. His WBC is normal. He is afebrile. Yesterday he was noted to have hives in his arms and back. Patient has been getting Zosyn, and has received 4 doses, and he has received 1 dose of IV vancomycin Infectious disease consultation has been requested to evaluate the patient. Notes reviewed Temps ok Pain better ALYSON drain in place C/S pending ESR 39 CRP 4.4 Antibiotics: Clindamycin Levaquin Past Medical History: Knee surgery Allergies/Adverse Reactions: Allergies vancomycin Adverse Reaction (Mild, Verified 07/06/18 01:25) Hives piperacillin [From Zosyn] Adverse Reaction (Verified 07/06/18 01:25) Hives tazobactam [From Zosyn] Adverse Reaction (Verified 07/06/18 01:25) Hives Objective Vital Signs 07/06/18 14:18 07/06/18 14:30 07/06/18 14:45 Temperature 96 F L Pulse Rate 97 H 98 H 82 Respiratory Rate 17 18 18 Blood Pressure 120/73 134/79 133/76 Pulse Oximetry 93 L 94 L 96 07/06/18 15:00 07/06/18 15:06 07/06/18 16:00 Temperature 97.8 F 97.3 F L Pulse Rate 83 84 81 Respiratory Rate 17 18 16 Blood Pressure 121/78 124/82 138/94 H Pulse Oximetry 96 97 97 07/06/18 17:00 07/06/18 20:00 07/06/18 20:41 Temperature 97.4 F L Pulse Rate 77 Respiratory Rate 19 Blood Pressure 133/77 Pulse Oximetry 98 98 98 07/07/18 01:36 07/07/18 08:00 Temperature 97.2 F L 97.8 F Pulse Rate 75 72 Respiratory Rate 19 16 Blood Pressure 133/86 147/90 H Pulse Oximetry 97 97 Intake & Output 07/06/18 07/07/18 07/07/18 18:59 06:59 18:59 Intake Total 4080 / 4080 1850 / 1850 50 / 50 Output Total 35 / 35 475 / 475 Balance 4045 / 4045 1375 / 1375 50 / 50 Weight 83.7 kg Intake: IV 1100 / 1100 1050 / 1050 50 / 50 LR 1000 mL Inj 1,000 ML @ 80 1000 / 1000 mls/hr IV.CONT .[id number] [facility] Rx# :[id number] NS Inj 1,000 ML @ 100 mls/hr IV 1000 / 1000 .CONT .Q10H [facility] Rx#:[id number] Cleocin 900 mg/NS Premix 900 mg 100 / 100 50 / 50 50 / 50 In 50 ml @ 100 mls/hr IV.SIG Q8H JOHN Rx#:[id number] Oral 480 / 480 800 / 800 Anesthesia Amount 2500 / 2500 Output: Urine 475 / 475 Estimated Blood Loss 30 / 30 Wound Drainage 5 / 5 # 1 Left Knee ALYSON Drain 5 / Other: # Voids 3 Date of Last Bowel Movement 07/05/18 07/05/18 07/06/18 13:23 Wound - Other Gram Stain - Final 07/06/18 13:23 Wound - Other Wound Culture - Pending 07/06/18 13:24 Wound - Other Gram Stain - Final 07/06/18 13:24 Wound - Other Wound Culture - Pending 07/06/18 13:23 Wound - Other Fungal Smear - Final No fungal elements seen 07/06/18 13:23 Wound - Other Fungal Culture - Pending 07/06/18 13:24 Wound - Other Fungal Smear - Final No fungal elements seen 07/06/18 13:24 Wound - Other Fungal Culture - Pending 07/06/18 13:23 Wound - Other Acid Fast Bacilli Smear - Pending 07/06/18 13:23 Wound - Other Mycobacterial Culture - Pending 07/06/18 13:24 Wound - Other Acid Fast Bacilli Smear - Pending 07/06/18 13:24 Wound - Other Mycobacterial Culture - Pending Lab - Hematology Results 07/07/18 06:59 ESR 39 H Lab - Chemistry Results 07/07/18 06:59 Creatinine 0.71 Estimated GFR Greater than 89 Total Bilirubin 0.4 Direct Bilirubin 0.1 Indirect Bilirubin 0.3 AST 10 L ALT 23 Alkaline Phosphatase 63 C-Reactive Protein 4.40 H Total Protein 6.3 L D Albumin 2.6 L Physical Exam: GENERAL: awake and alert, not in respiratory distress. SKIN: Warm and dry. No generalized rash, no ecchymoses and no evidence of embolic lesions. HEAD: Atraumatic. Normocephalic. No temporal wasting, or tenderness. EYES: [place] conjunctiva. No petechia or hemorrhage. Pupils equal, round and reactive to light. Extraocular movements full and intact. No scleral icterus. No injection or drainage. EARS, NOSE AND THROAT: Nose without bleeding or purulent nasal discharge. No sinus tenderness. Mucous membranes pink and moist. No oral lesions noted. NECK: Trachea midline. Supple and not tender, no meningeal signs CARDIOVASCULAR: Regular rate and rhythm. No murmurs, rubs or gallops heard RESPIRATORY: Clear to auscultation. Breath sounds equal bilaterally. No rales , wheezing or rhonchi ABDOMEN: Soft, non-tender, nondistended. Bowel sounds present and normoactive. No guarding. No rebound. No organomegaly. EXTREMITIES: No clubbing, cyanosis. Has dry dressing on his L knee, has ALYSON drain in place with bloody drainage. Has erythema on his L leg with some edema. No calf tenderness. Well perfused and warm. NEUROLOGICAL: Awake and alert. Cranial nerves grossly intact. Motor grossly within normal limits. PSYCHIATRIC: Normal affect, calm and cooperative. LINE: No evidence of infection Assessment and Plan - Plan Impression Cellulitis L knee Possible Septic prepatellar bursitis - S/P surgery Hives, ?from Zosyn or Vancomycin Recommendation Continue Clindamycin Continue Levaquin Follow C/S Monitor progress Will determine course of Rx once workup is completed
[2018-07-07] MEDS: Zolpidem Tartrate 5 MG Tablet PO PRN (23:27)
[2018-07-08] MEDS: Clindamycin 900 mg/NS Premix 900 MG/50 ML PIGGYBACK IV.SIG SCH (03:04)
[2018-07-08] MEDS: Sod Chloride 0.9% Inj 1,000 ML IV.CONT SCH ×2 (06:39→18:42)
[2018-07-08 07:43] LABS: Glomerular Filtration Rate Greater Than 89 mL/min (>89)
--- NOTE | 2018-07-08 08:49 | P.PNID ---
Subjective Remarks: Patient is a 53-year-old male, presented to the hospital complaining of pain and swelling on his left knee over the last 4 days. This is a 53-year-old male who presented to [facility]. He had noted that he had something on his left knee that looked like a bump. 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 The pain gets worse with any kind of movement and with weightbearing. He had some low-grade fevers. He denies any respiratory complaint, GI or any urinary complaints. He does not remember having any trauma , and he has not had any prior problem with his knee. He first presented in the ED at [facility] and from there he was transferred to [facility] for further management. Aspiration of the left knee was tried but no fluid was obtained. Orthopedic evaluation was done, and the patient was taken to surgery today and had I&D of his left knee and was diagnosed to have prepatellar bursitis. His WBC is normal. He is afebrile. Yesterday he was noted to have hives in his arms and back. Patient has been getting Zosyn, and has received 4 doses, and he has received 1 dose of IV vancomycin Infectious disease consultation has been requested to evaluate the patient. Notes reviewed Temps ok Pain better ALYSON drain in place, minimal output C/S MSSA ESR 39 CRP 4.4 Antibiotics: Clindamycin Levaquin Past Medical History: Knee surgery Allergies/Adverse Reactions: Allergies vancomycin Adverse Reaction (Mild, Verified 07/06/18 01:25) Hives piperacillin [From Zosyn] Adverse Reaction (Verified 07/06/18 01:25) Hives tazobactam [From Zosyn] Adverse Reaction (Verified 07/06/18 01:25) Hives Objective Vital Signs 07/07/18 12:00 07/07/18 16:00 07/07/18 20:00 Temperature 97.7 F 97.8 F 97.9 F Pulse Rate 74 67 73 Respiratory Rate 17 18 18 Blood Pressure 124/77 140/90 140/86 Pulse Oximetry 98 99 96 07/08/18 00:00 Temperature 98.0 F Pulse Rate 76 Respiratory Rate 17 Blood Pressure 137/87 Pulse Oximetry 98 Intake & Output 07/07/18 07/08/18 07/08/18 18:59 06:59 18:59 Intake Total 1770 / 1770 2600 / 2600 Output Total 5 / 5 3 / 3 Balance 1765 / 1765 2600 / 2600 -3 / -3 Weight 83.7 kg Intake: IV 1050 / 1050 1100 / 1100 NS Inj 1,000 ML @ 100 mls/hr IV 1000 / 1000 1000 / 1000 .CONT .Q10H JOHN Rx#:[id number] Cleocin 900 mg/NS Premix 900 mg 50 / 50 100 / 100 In 50 ml @ 100 mls/hr IV.SIG Q8H JOHN Rx#:[id number] Oral 720 / 720 1500 / 1500 Output: Wound Drainage # 1 Left Knee ALYSON Drain Other: # Voids 4 1 Date of Last Bowel Movement 07/05/18 07/05/18 # Bowel Movements 0 07/06/18 13:23 Wound - Other Acid Fast Bacilli Smear - Final No acid fast bacilli seen 07/06/18 13:23 Wound - Other Mycobacterial Culture - Pending 07/06/18 13:24 Wound - Other Acid Fast Bacilli Smear - Final No acid fast bacilli seen 07/06/18 13:24 Wound - Other Mycobacterial Culture - Pending 07/06/18 13:23 Wound - Other Gram Stain - Final 07/06/18 13:23 Wound - Other Wound Culture - Preliminary Staphylococcus aureus 07/06/18 13:24 Wound - Other Gram Stain - Final 07/06/18 13:24 Wound - Other Wound Culture - Preliminary Staphylococcus aureus 07/06/18 13:23 Wound - Other Fungal Smear - Final No fungal elements seen 07/06/18 13:23 Wound - Other Fungal Culture - Pending 07/06/18 13:24 Wound - Other Fungal Smear - Final No fungal elements seen 07/06/18 13:24 Wound - Other Fungal Culture - Pending Lab - Hematology Results 07/07/18 06:59 ESR 39 H Lab - Chemistry Results 07/07/18 07/08/18 06:59 06:13 Creatinine 0.71 0.76 Estimated GFR Greater than 89 Greater than 89 Total Bilirubin 0.4 Direct Bilirubin 0.1 Indirect Bilirubin 0.3 AST 10 L ALT 23 Alkaline Phosphatase 63 C-Reactive Protein 4.40 H Total Protein 6.3 L D Albumin 2.6 L Physical Exam: GENERAL: awake and alert, not in respiratory distress. SKIN: Cool and dry. No generalized rash HEAD: Atraumatic. Normocephalic. No temporal wasting, or tenderness. EYES: [place] conjunctiva. No petechia or hemorrhage. Pupils equal, round and reactive to light. Extraocular movements full and intact. No scleral icterus. No injection or drainage. EARS, NOSE AND THROAT: Nose without bleeding or purulent nasal discharge. Mucous membranes pink and moist. No oral lesions noted. NECK: Trachea midline. Supple and not tender, no meningeal signs CARDIOVASCULAR: Regular rate and rhythm. No murmurs, rubs or gallops heard RESPIRATORY: Clear to auscultation. Breath sounds equal bilaterally. No rales , wheezing or rhonchi ABDOMEN: Soft, non-tender, nondistended. Bowel sounds present and normoactive. No guarding. No rebound. No organomegaly. EXTREMITIES: No clubbing, cyanosis. Has dry dressing on his L knee, has ALYSON drain in place with minimal bloody drainage. Still with erythema on his L leg with improving edema. No calf tenderness. NEUROLOGICAL: Grossly non-focal. PSYCHIATRIC: calm and cooperative. LINE: No evidence of infection Assessment and Plan - Plan Impression Cellulitis L knee Septic prepatellar bursitis - S/P surgery - C/S MSSA Hives, ?from Zosyn or Vancomycin Recommendation Change to IV Ancef Follow new C/S Monitor progress Will examine knee when ok with ortho Will determine course of Rx once workup is completed
[2018-07-08] MEDS ORDERED: ceFAZolin Inj 2,000 MG in Sodium Chlor 0.9% Inj 80 ML IV.SIG SCH (09:00)
[2018-07-08] MEDS: ceFAZolin 2 GM Premix Inj 2 GM/100 ML BAG IV.SIG SCH ×2 (10:24→18:42)
[2018-07-08] MEDS: Multivitamin/Minerals Therapeutic Tablet PO SCH ×2 (10:26→22:00)
[2018-07-08] MEDS: Senna/Docusate Sodium 8.6/50 MG Tablet PO SCH ×2 (10:26→22:00)
--- NOTE | 2018-07-08 12:17 | P.PNOP ---
Subjective Interval history: Patient is resting comfortably in bed in no acute distress. The patient states his pain is improving. Physical Exam Vital signs: Vital Signs 07/07/18 16:00 07/07/18 20:00 07/08/18 00:00 Temperature 97.8 F 97.9 F 98.0 F Pulse Rate 67 73 76 Respiratory Rate 18 18 17 Blood Pressure 140/90 140/86 137/87 Pulse Oximetry 99 96 98 07/08/18 08:00 Temperature 97.6 F Pulse Rate 69 Respiratory Rate 17 Blood Pressure 153/98 H Pulse Oximetry 99 Intake & Output 07/07/18 07/08/18 07/08/18 18:59 06:59 18:59 Intake Total 1770 / 1770 2600 / 2600 Output Total 5 / 5 3 / 3 Balance 1765 / 1765 2600 / 2600 -3 / -3 Weight 83.7 kg Intake: IV 1050 / 1050 1100 / 1100 NS Inj 1,000 ML @ 100 mls/hr IV 1000 / 1000 1000 / 1000 .CONT .Q10H JOHN Rx#:[id number] Cleocin 900 mg/NS Premix 900 mg 50 / 50 100 / 100 In 50 ml @ 100 mls/hr IV.SIG Q8H JOHN Rx#:[id number] Oral 720 / 720 1500 / 1500 Output: Wound Drainage 5 / 3 / # 1 Left Knee ALYSON Drain Other: # Voids 4 1 Date of Last Bowel Movement 07/05/18 07/05/18 # Bowel Movements 0 Narrative: The patient's dressing was changed. The patient has decreased erythema about the left knee. The patient's swelling is improving about the left knee. The patient's incision is well approximated with no drainage. The patient has a well approximated surgical incision with sutures intact. The patient's drain has minimal output and was pulled today. Pressure dressing was applied. EHL/TA /G are intact. 2+ pedal pulse. The patient's calf is soft and nontender. Sensation is intact to light touch distally. Negative for effusion. Results - Labs CBC & Chem 7: 07/05/18 04:09 07/08/18 06:13 Laboratory Results - last 24 hr 07/08/18 06:13 Creatinine 0.76 Estimated GFR Greater than 89 Microbiology 07/06/18 13:23 Wound - Other Gram Stain - Final 07/06/18 13:23 Wound - Other Wound Culture - Final Staphylococcus aureus 07/06/18 13:24 Wound - Other Gram Stain - Final 07/06/18 13:24 Wound - Other Wound Culture - Final Staphylococcus aureus 07/06/18 13:23 Wound - Other Acid Fast Bacilli Smear - Final No acid fast bacilli seen 07/06/18 13:24 Wound - Other Acid Fast Bacilli Smear - Final No acid fast bacilli seen 07/06/18 13:23 Wound - Other Fungal Smear - Final No fungal elements seen 07/06/18 13:24 Wound - Other Fungal Smear - Final No fungal elements seen - Procedures Left knee prepatellar bursectomy with irrigation and debridement Assessment and Plan - Assessment and Plan Postop day #2: Left knee prepatellar bursectomy with irrigation and debridement 1. Weightbearing as tolerated on the left lower extremity 2. Daily dressing changes. Drain was pulled due to minimal output and pressure dressing applied. 3. Infectious disease to manage antibiotics. We will continue to follow intraoperative cultures. Current cultures showing staph aureus. 4. Stable for discharge per Ortho once medical and infectious disease have arranged for IV antibiotics and PICC line. 5. The patient will follow up in the office with Dr. Mares and DIAZ Carroll in 1-2 weeks.
--- NOTE | 2018-07-08 14:40 | P.PNIM ---
Subjective Interval history: Patient says he is feeling right. Reports pain is controlled. Denies any chest pain or shortness of breath. Denies nausea vomiting. No hives. Physical Exam Vital signs: Vital Signs 07/07/18 16:00 07/07/18 20:00 07/08/18 00:00 Temperature 97.8 F 97.9 F 98.0 F Pulse Rate 67 73 76 Respiratory Rate 18 18 17 Blood Pressure 140/90 140/86 137/87 Pulse Oximetry 99 96 98 07/08/18 08:00 07/08/18 12:00 Temperature 97.6 F 97.9 F Pulse Rate 69 68 Respiratory Rate 17 17 Blood Pressure 153/98 H 157/96 H Pulse Oximetry 99 98 Intake & Output 07/07/18 07/08/18 07/08/18 18:59 06:59 18:59 Intake Total 1770 / 1770 2600 / 2600 Output Total 5 / 5 3 / 3 Balance 1765 / 1765 2600 / 2600 -3 / -3 Weight 83.7 kg Intake: IV 1050 / 1050 1100 / 1100 NS Inj 1,000 ML @ 100 mls/hr IV 1000 / 1000 1000 / 1000 .CONT .Q10H JOHN Rx#:[id number] Cleocin 900 mg/NS Premix 900 mg 50 / 50 100 / 100 In 50 ml @ 100 mls/hr IV.SIG Q8H JOHN Rx#:[id number] Oral 720 / 720 1500 / 1500 Output: Wound Drainage 5 / 5 3 / 3 # 1 Left Knee ALYSON Drain 5 / 5 3 / 3 Other: # Voids 4 1 Date of Last Bowel Movement 07/05/18 07/05/18 # Bowel Movements 0 Narrative: GENERAL: Patient sitting up in bed. Appears comfortable. SKIN: Warm and dry. HEAD: Normocephalic. EYES: No scleral icterus. No injection or drainage. NECK: Supple, trachea midline. No JVD or lymphadenopathy. CARDIOVASCULAR: Regular rate and rhythm without murmurs, gallops, or rubs. RESPIRATORY: Breath sounds equal bilaterally. No accessory muscle use. GASTROINTESTINAL: Abdomen soft, non-tender, nondistended. MUSCULOSKELETAL: No cyanosis, or edema. Left knee dressing intact, wound not examined. BACK: Nontender without obvious deformity. No CVA tenderness. Results - Labs CBC & Chem 7: 07/05/18 04:09 07/08/18 06:13 Laboratory Results - last 24 hr 07/08/18 06:13 Creatinine 0.76 Estimated GFR Greater than 89 Microbiology 07/06/18 13:23 Wound - Other Gram Stain - Final 07/06/18 13:23 Wound - Other Wound Culture - Final Staphylococcus aureus 07/06/18 13:24 Wound - Other Gram Stain - Final 07/06/18 13:24 Wound - Other Wound Culture - Final Staphylococcus aureus 07/06/18 13:23 Wound - Other Acid Fast Bacilli Smear - Final No acid fast bacilli seen 07/06/18 13:24 Wound - Other Acid Fast Bacilli Smear - Final No acid fast bacilli seen - Procedures Left knee prepatellar bursectomy with irrigation and debridement Assessment and Plan - Assessment (1) Cellulitis of left knee Code(s): L03.116 - Cellulitis of left lower limb Status: Acute - Plan Mr. Adorno is a 53-year-old male with no significant medical history who presented to the [place] emergency room on 07/04/2018 complaining of left knee pain and swelling. His findings were consistent with cellulitis and he was transferred to [facility] for admission by the hospitalist team. //Cellulitis left knee //Prepatellar bursitis -IV antibiotics: Vancomycin and Zosyn -Analgesia: IV Toradol -As needed acetaminophen for fever -Monitor erythematosus area traced in black marker for improvement versus worsening = 07/05. There is improvement with her changing of cellulitis from marked area, however still inflammation of the tissue surrounding the knee, including what appears to be prepatellar bursitis. Will consult orthopedics for assessment. Continue antibiotics. = 07/06. For surgery today. Appreciate surgical assistance. Follow-up cultures , negative at this time. = 07/07. Continue antibiotics as per infectious disease. Continues with drain in place. Follow-up cultures from [facility] 07/05, as well as from surgery 07/06. Appreciate ID and or so assistance. = 07/08. Continue IV cefazolin. Antibiotics as per ID. Appreciate assistance. DVT prophylaxis - Early ambulation Discharge Planning: When cleared by Ortho, ID
[2018-07-09] MEDS: ceFAZolin 2 GM Premix Inj 2 GM/100 ML BAG IV.SIG SCH ×3 (01:45→15:32)
[2018-07-09] MEDS: Sod Chloride 0.9% Inj 1,000 ML IV.CONT SCH (01:46)
[2018-07-09 07:49] LABS: Glomerular Filtration Rate Greater Than 89 mL/min (>89)
--- NOTE | 2018-07-09 09:08 | P.PNIM ---
Subjective Interval history: Patient says he is feeling well. Reports pain control. Denies any chest pain shortness of breath. Physical Exam Vital signs: Vital Signs 07/08/18 12:00 07/08/18 16:00 07/08/18 20:00 Temperature 97.9 F 98.0 F 98.7 F Pulse Rate 68 65 85 Respiratory Rate 17 18 20 Blood Pressure 157/96 H 136/92 H 164/94 H Pulse Oximetry 98 95 98 07/09/18 00:00 07/09/18 08:00 Temperature 97.7 F 98.4 F Pulse Rate 78 66 Respiratory Rate 20 18 Blood Pressure 129/71 143/88 H Pulse Oximetry 97 96 Intake & Output 07/08/18 07/09/18 07/09/18 18:59 06:59 18:59 Intake Total 2300 / 2300 1520 / 1520 100 / 100 Output Total 3 / 3 900 / 900 Balance 2297 / 2297 620 / 620 100 / 100 Intake: IV 1100 / 1100 1100 / 1100 100 / 100 NS Inj 1,000 ML @ 100 mls/hr IV 1000 / 1000 1000 / 1000 .CONT .Q10H JOHN Rx#:[id number] Ancef 2 GM Premix Inj 2 gm In 100 / 100 100 / 100 100 / 100 100 ml @ 200 mls/hr IV.SIG Q8H JOHN Rx#:[id number] Oral 1200 / 1200 420 / 420 Output: Urine 900 / 900 Wound Drainage 3 / 3 # 1 Left Knee ALYSON Drain 3 / 3 Other: # Voids 7 # Bowel Movements 2 Narrative: GENERAL: Patient sitting up in bed. Appears comfortable. Alert and oriented 3. SKIN: Warm and dry. HEAD: Normocephalic. EYES: No scleral icterus. No injection or drainage. NECK: Supple, trachea midline. No JVD or lymphadenopathy. CARDIOVASCULAR: Regular rate and rhythm without murmurs, gallops, or rubs. RESPIRATORY: Breath sounds equal bilaterally. No accessory muscle use. GASTROINTESTINAL: Abdomen soft, non-tender, nondistended. MUSCULOSKELETAL: No cyanosis, or edema. Left knee dressing intact, wound not examined. BACK: Nontender without obvious deformity. No CVA tenderness. Results - Labs CBC & Chem 7: 07/05/18 04:09 07/09/18 06:00 Laboratory Results - last 24 hr 07/09/18 06:00 Creatinine 0.77 Estimated GFR Greater than 89 Microbiology 07/06/18 13:23 Wound - Other Gram Stain - Final 07/06/18 13:23 Wound - Other Wound Culture - Final Staphylococcus aureus 07/06/18 13:24 Wound - Other Gram Stain - Final 07/06/18 13:24 Wound - Other Wound Culture - Final Staphylococcus aureus - Procedures Left knee prepatellar bursectomy with irrigation and debridement Assessment and Plan - Assessment (1) Cellulitis of left knee Code(s): L03.116 - Cellulitis of left lower limb Status: Acute - Plan Mr. Adorno is a 53-year-old male with no significant medical history who presented to the [place] emergency room on 07/04/2018 complaining of left knee pain and swelling. His findings were consistent with cellulitis and he was transferred to [facility] for admission by the hospitalist team. //Cellulitis left knee //Prepatellar bursitis -IV antibiotics: Vancomycin and Zosyn -Analgesia: IV Toradol -As needed acetaminophen for fever -Monitor erythematosus area traced in black marker for improvement versus worsening = 07/05. There is improvement with her changing of cellulitis from marked area, however still inflammation of the tissue surrounding the knee, including what appears to be prepatellar bursitis. Will consult orthopedics for assessment. Continue antibiotics. = 07/06. For surgery today. Appreciate surgical assistance. Follow-up cultures , negative at this time. = 07/07. Continue antibiotics as per infectious disease. Continues with drain in place. Follow-up cultures from [facility] 07/05, as well as from surgery 07/06. Appreciate ID and or so assistance. = 07/08. Continue IV cefazolin. Antibiotics as per ID. Appreciate assistance. = 07/09. Discussed with infectious disease. Will order PICC line. DVT prophylaxis - Early ambulation Discharge Planning: Cleared by Rick Pearson. We will order PICC line as per discussion with ID.
[2018-07-09] MEDS: Multivitamin/Minerals Therapeutic Tablet PO SCH (09:36)
[2018-07-09] MEDS: Senna/Docusate Sodium 8.6/50 MG Tablet PO SCH (09:36)
--- NOTE | 2018-07-09 11:58 | P.PNID ---
Subjective Remarks: Patient is a 53-year-old male, presented to the hospital complaining of pain and swelling on his left knee over the last 4 days. This is a 53-year-old male who presented to [facility]. He had noted that he had something on his left knee that looked like a bump. 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 The pain gets worse with any kind of movement and with weightbearing. He had some low-grade fevers. He denies any respiratory complaint, GI or any urinary complaints. He does not remember having any trauma , and he has not had any prior problem with his knee. He first presented in the ED at [facility] and from there he was transferred to [facility] for further management. Aspiration of the left knee was tried but no fluid was obtained. Orthopedic evaluation was done, and the patient was taken to surgery today and had I&D of his left knee and was diagnosed to have prepatellar bursitis. His WBC is normal. He is afebrile. Yesterday he was noted to have hives in his arms and back. Patient has been getting Zosyn, and has received 4 doses, and he has received 1 dose of IV vancomycin Infectious disease consultation has been requested to evaluate the patient. Notes reviewed Temps ok Pain better Cleared by ortho for D/C Tolerating Ancef C/S MSSA ESR 39 CRP 4.4 Antibiotics: Ancef Past Medical History: Knee surgery Allergies/Adverse Reactions: Allergies vancomycin Adverse Reaction (Mild, Verified 07/06/18 01:25) Hives piperacillin [From Zosyn] Adverse Reaction (Verified 07/06/18 01:25) Hives tazobactam [From Zosyn] Adverse Reaction (Verified 07/06/18 01:25) Hives Objective Vital Signs 07/08/18 12:00 07/08/18 16:00 07/08/18 20:00 Temperature 97.9 F 98.0 F 98.7 F Pulse Rate 68 65 85 Respiratory Rate 17 18 20 Blood Pressure 157/96 H 136/92 H 164/94 H Pulse Oximetry 98 95 98 07/09/18 00:00 07/09/18 08:00 Temperature 97.7 F 98.4 F Pulse Rate 78 66 Respiratory Rate 20 18 Blood Pressure 129/71 143/88 H Pulse Oximetry 97 96 Intake & Output 07/08/18 07/09/18 07/09/18 18:59 06:59 18:59 Intake Total 2300 / 2300 1520 / 1520 100 / 100 Output Total 3 900 / 900 Balance 2297 / 2297 620 / 620 100 / 100 Intake: IV 1100 / 1100 1100 / 1100 100 / 100 NS Inj 1,000 ML @ 100 mls/hr IV 1000 / 1000 1000 / 1000 .CONT .Q10H JOHN Rx#:[id number] Ancef 2 GM Premix Inj 2 gm In 100 / 100 100 / 100 100 / 100 100 ml @ 200 mls/hr IV.SIG Q8H JOHN Rx#:[id number] Oral 1200 / 1200 420 / 420 Output: Urine 900 / 900 Wound Drainage # 1 Left Knee ALYSON Drain Other: # Voids 7 # Bowel Movements 2 07/06/18 13:23 Wound - Other Gram Stain - Final 07/06/18 13:23 Wound - Other Wound Culture - Final Staphylococcus aureus 07/06/18 13:24 Wound - Other Gram Stain - Final 07/06/18 13:24 Wound - Other Wound Culture - Final Staphylococcus aureus 07/06/18 13:23 Wound - Other Acid Fast Bacilli Smear - Final No acid fast bacilli seen 07/06/18 13:23 Wound - Other Mycobacterial Culture - Pending 07/06/18 13:24 Wound - Other Acid Fast Bacilli Smear - Final No acid fast bacilli seen 07/06/18 13:24 Wound - Other Mycobacterial Culture - Pending 07/06/18 13:23 Wound - Other Fungal Smear - Final No fungal elements seen 07/06/18 13:23 Wound - Other Fungal Culture - Pending 07/06/18 13:24 Wound - Other Fungal Smear - Final No fungal elements seen 07/06/18 13:24 Wound - Other Fungal Culture - Pending Lab - Chemistry Results 07/08/18 07/09/18 06:13 06:00 Creatinine 0.76 0.77 Estimated GFR Greater than 89 Greater than 89 Physical Exam: GENERAL: awake and alert, not in respiratory distress. SKIN: Cool and dry. No generalized rash HEAD: Atraumatic. Normocephalic. No temporal wasting, or tenderness. EYES: [place] conjunctiva. No petechia or hemorrhage. Pupils equal, round and reactive to light. Extraocular movements full and intact. No scleral icterus. No injection or drainage. EARS, NOSE AND THROAT: Nose without bleeding or purulent nasal discharge. Mucous membranes pink and moist. No oral lesions noted. NECK: Trachea midline. Supple and not tender, no meningeal signs CARDIOVASCULAR: Regular rate and rhythm. No murmurs, rubs or gallops heard RESPIRATORY: Clear to auscultation. Breath sounds equal bilaterally. No rales , wheezing or rhonchi ABDOMEN: Soft, non-tender, nondistended. Bowel sounds present and normoactive. No guarding. No rebound. No organomegaly. EXTREMITIES: No clubbing, cyanosis. L knee incision is dry with mild erythema. Redness in leg and thigh gone. No calf tenderness. NEUROLOGICAL: Grossly non-focal. PSYCHIATRIC: calm and cooperative. LINE: No evidence of infection Assessment and Plan - Plan Impression Cellulitis L knee Septic prepatellar bursitis - S/P surgery - C/S MSSA Hives, ?from Zosyn or Vancomycin Recommendation PICC Will use Rocephin to complete Rx Give Abx till Aug 02 Labs weekly: CBC, Creat, LFT CM to arrange for home vs outpatient Rx - he has medicaid share of cost Explained plan to patient and
--- NOTE | 2018-07-09 12:00 | P.DCO ---
Post Hospital Infusion Therapy Patient Weight: 83.7 kg - Diagnosis (1) Septic prepatellar bursitis of left knee Code(s): M71.162 - Other infective bursitis, left knee - Administer Medication Ceftriaxone Dose: 2 grams IV Directions: q 24 hours Stop Treatment: 08/02/18 - Additional Information Venous Access: Other (Mildine) Additional Instructions: [x] Peripheral flush and dressing changes per protocol [x] Implanted port and central pipe line walker: * Implanted port: 10 ml Normal Saline followed by 5 ml Heparin 100 units/ml Heparin flush after each use and monthly to maintain. [] May leave port accessed during therapy. [] May leave peripheral site accessed for duration of therapy. [x] If patient has SOB or respiratory distress, check oxygen saturation. If less than 90% or clinical signs of respiratory distress, administer oxygen at 2 L/min. via nasal cannula and notify physician. [x] Anaphylaxis/Reaction orders: * Stop infusion. * Keep IV line open with saline flush. * Notify physician. * Monitor vital signs every 15 minutes until symptoms resolve. * Check Oxygen saturation; Oxygen at 2 L/min. via nasal cannula if less than 90% or clinical signs of respiratory distress. * Administer diphenhydramine (Benadryl) 25 mg IV STAT, (unless patient has received as pre-med). May repeat once, if necessary. * Solu-Cortef 250 mg IVP over 30-60 seconds, use 100 mg vials for each dissolution. * Epinephrine (1mg/1 ml) 0.3 mg subcutaneously or IVP now with any signs of respiratory distress. * Check with physician for new additional pre-med orders if patient is re- challenged or re-treated. [x] May remove PICC line when treatment complete, after confirming with Physician. [x] If the patient is admitted to the hospital, the ED, or transferred via [facility] , complete transfer form including medication reconciliation order sheet. Weekly Labs: CBC w/diff, Creatinine, LFTs (Hepatic Function Test) (Labs every Wednesday) Case Management Consult: No Allergies vancomycin Adverse Reaction (Mild, Verified 07/06/18 01:25) Hives piperacillin [From Zosyn] Adverse Reaction (Verified 07/06/18 01:25) Hives tazobactam [From Zosyn] Adverse Reaction (Verified 07/06/18 01:25) Hives
--- NOTE | 2018-07-09 14:53 | P.DCO ---
- Home Health Nursing Order: IV medication administration Instructions: Please see e infusion protocol as per infectious disease. Will Need Ceftriaxone 2 Grams IV Q 24 hours until 08/02/18. - Certification I have seen patient Jai Adorno on 07/09/18. My clinical findings support the need for the requested home health care services because: Limited ability to care for self I certify that my clinical findings support that this patient is homebound because: Unsafe to leave home unassisted
--- NOTE | 2018-07-09 15:04 | P.DS ---
Date of admission: 07/07/18 16:22 Primary care physician: No Primary Care Physician Brief History from admission: Mr. Adorno is a 53-year-old male with no significant medical history who presented to the [place] emergency room on 07/04/2018 complaining of left knee pain and swelling. His findings were consistent with cellulitis and he was transferred to [facility] for admission by the hospitalist team. The patient is seen in his hospital room upon transfer from [place]. He reports severe throbbing, pressure-like left knee pain that has reduced to moderate left knee pain following administration of [place] at [place] [facility]. He reports symptoms increase with weightbearing. He states his symptoms began on Wednesday night and have progressively worsened. He has a small papular area on the left knee that he states he was squeezing and trying to pop and he thinks this was the beginning of the infection. He works in construction and has been on his knees over the past couple of days with worsening of symptoms. An attempt was made to remove fluid from the prepatellar fluid collection noted on the CT in the [place] ER, but this was unsuccessful. Patient notes low grade temp of 100 at home yesterday. There are no family members with similar lesions or symptoms. DS: Diagnosis - Discharge Diagnosis (1) Cellulitis of left knee Status: Acute (2) Septic prepatellar bursitis of left knee Status: Acute DS: Medications - Discharge Medications Prescriptions: hydrocodone-acetaminophen [[place]] 1 - 2 tab PO Q4-6H #50 tab DS: Summary Hospital Course: Patient presented with sepsis, left knee cellulitis. Cellulitis improved with IV antibiotics, however still with prepatellar bursitis. Orthopedics was consulted, and patient underwent left knee bursectomy with washout, placement of ALYSON drain. ALYSON drain subsequently removed after giving minimal output. Infectious disease was consulted and recommends continued IV antibiotics until . Patient will be discharged home on ceftriaxone 2 g IV daily via PICC line until 08/02. Will need follow with primary care to monitor weekly labs as outpatient. Will also need follow-up with orthopedics as outpatient. For problem based summary from most recent progress note, please see below. Mr. Adorno is a 53-year-old male with no significant medical history who presented to the [place] emergency room on 07/04/2018 complaining of left knee pain and swelling. His findings were consistent with cellulitis and he was transferred to [facility] for admission by the hospitalist team. //Cellulitis left knee //Prepatellar bursitis -IV antibiotics: Vancomycin and Zosyn -Analgesia: IV Toradol -As needed acetaminophen for fever -Monitor erythematosus area traced in black marker for improvement versus worsening = 07/05. There is improvement with her changing of cellulitis from marked area, however still inflammation of the tissue surrounding the knee, including what appears to be prepatellar bursitis. Will consult orthopedics for assessment. Continue antibiotics. = 07/06. For surgery today. Appreciate surgical assistance. Follow-up cultures , negative at this time. = 07/07. Continue antibiotics as per infectious disease. Continues with drain in place. Follow-up cultures from [facility] 07/05, as well as from surgery 07/06. Appreciate ID and or so assistance. = 07/08. Continue IV cefazolin. Antibiotics as per ID. Appreciate assistance. = 07/09. Discussed with infectious disease. Will order PICC line. DVT prophylaxis - Early ambulation - Time Spent with Patient Total time spent providing and/or coordinating discharge services: Greater than 30 minutes - Quality: VTE Deep Vein Thrombosis/Pulmonary Embolism Present on Admission: No Exam Vital signs: Vital Signs 07/08/18 16:00 07/08/18 20:00 07/09/18 00:00 Temperature 98.0 F 98.7 F 97.7 F Pulse Rate 65 85 78 Respiratory Rate 18 20 20 Blood Pressure 136/92 H 164/94 H 129/71 Pulse Oximetry 95 98 97 07/09/18 08:00 07/09/18 12:00 Temperature 98.4 F 98.5 F Pulse Rate 66 70 Respiratory Rate 18 18 Blood Pressure 143/88 H 141/82 H Pulse Oximetry 96 96 Intake & Output 07/08/18 07/09/18 07/09/18 18:59 06:59 18:59 Intake Total 2300 / 2300 1520 / 1520 100 / 100 Output Total 3 / 3 900 / 900 Balance 2297 / 2297 620 / 620 100 / 100 Weight 83.7 kg Intake: IV 1100 / 1100 1100 / 1100 100 / 100 NS Inj 1,000 ML @ 100 mls/hr IV 1000 / 1000 1000 / 1000 .CONT .Q10H JOHN Rx#:[id number] Ancef 2 GM Premix Inj 2 gm In 100 / 100 100 / 100 100 / 100 100 ml @ 200 mls/hr IV.SIG Q8H JOHN Rx#:[id number] Oral 1200 / 1200 420 / 420 Output: Urine 900 / 900 Wound Drainage 3 / 3 # 1 Left Knee ALYSON Drain 3 / 3 Other: # Voids 7 Date of Last Bowel Movement 07/09/18 # Bowel Movements 2 Results Procedures completed during hospitalization: Left knee prepatellar bursectomy with irrigation and debridement Labs on day of discharge: Labs from last 24 hours 07/09/18 06:00 Creatinine 0.77 Estimated GFR Greater than 89 Discharge Plan - Discharge Disposition Patient Disposition: /Home Health Service - Discharge Condition Condition: Good - Discharge Order Discharge Orders: Discharge Order (Routine); Ordered 07/09/18 Ordered By: Josef Klein - Discharge Details Anticipated Discharge Date: 07/09/18 Discharge Comment: Discharge on iv antibiotics via PICC line. - Physicians Team Primary Care Provider: Primary Care Barbara Whitlock Attending Provider: Josef Klein Other Providers: Cristino Mares MD ; Liza Vaughan MD ; [facility] - Rxs /Orders / Referrals /Forms Prescriptions: New ceftriaxone 2 gram Recon Soln 2,000 mg IV Q24H RF: 0 hydrocodone-acetaminophen [[place]] 5-325 mg Tablet 1 - 2 tab PO Q4-6H Qty: 50 RF: 0 Referrals: Cristino Mares MD [Physician] - See Instructions Primary Care Barbara Whitlock [Primary Care Provider] - See Instructions - Discharge Instructions Patient Printed Instructions: Incision and Drainage (DC)
--- NOTE | 2018-07-09 16:01 | P.PNOP ---
Subjective Interval history: Patient comfortable. Pain controlled. Patient is being discharge today. at bedside. Physical Exam Vital signs: Vital Signs 07/08/18 16:00 07/08/18 20:00 07/09/18 00:00 Temperature 98.0 F 98.7 F 97.7 F Pulse Rate 65 85 78 Respiratory Rate 18 20 20 Blood Pressure 136/92 H 164/94 H 129/71 Pulse Oximetry 95 98 97 07/09/18 08:00 07/09/18 12:00 Temperature 98.4 F 98.5 F Pulse Rate 66 70 Respiratory Rate 18 18 Blood Pressure 143/88 H 141/82 H Pulse Oximetry 96 96 Intake & Output 07/08/18 07/09/18 07/09/18 18:59 06:59 18:59 Intake Total 2300 / 2300 1520 / 1520 200 / 200 Output Total 3 / 3 900 / 900 Balance 2297 / 2297 620 / 620 200 / 200 Weight 83.7 kg Intake: IV 1100 / 1100 1100 / 1100 200 / 200 NS Inj 1,000 ML @ 100 mls/hr IV 1000 / 1000 1000 / 1000 .CONT .Q10H JOHN Rx#:[id number] Ancef 2 GM Premix Inj 2 gm In 100 / 100 100 / 100 200 / 200 100 ml @ 200 mls/hr IV.SIG Q8H JOHN Rx#:[id number] Oral 1200 / 1200 420 / 420 Output: Urine 900 / 900 Wound Drainage 3 / 3 # 1 Left Knee ALYSON Drain 3 / Other: # Voids 7 Date of Last Bowel Movement 07/09/18 # Bowel Movements 2 Narrative: Left knee dressing C/D/I no signs of infection or drainage noted distally motor, neuro and sensory intact Results - Labs CBC & Chem 7: 07/05/18 04:09 07/09/18 06:00 Laboratory Results - last 24 hr 07/09/18 06:00 Creatinine 0.77 Estimated GFR Greater than 89 - Procedures Left knee prepatellar bursectomy with irrigation and debridement Assessment and Plan - Assessment and Plan Postop day #3: Left knee prepatellar bursectomy with irrigation and debridement 1. Weightbearing as tolerated on the left lower extremity 2. PICC line in place 3. Infectious disease to manage antibiotics. Current cultures showing staph aureus. 4. Stable for discharge per Ortho once medical and infectious disease have arranged for IV antibiotics. 5. The patient will follow up in the office with Dr. Mares and DIAZ Carroll in 1-2 weeks.
== END 2018-07-09 17:03 | disposition home health service (06) ==
LOC: NEDDLT 20:55 → N07 20:55
PROVIDERS: ADMIT Internal Medicine; ATTEND Internal Medicine